=== PATIENT | male | born 1940 | race Caucasian/White ===

== ENCOUNTER → 2017-07-22 | Outpatient (CLI) | payer MEDICARE, OTHER ==
[~2017-07-22] MED LIST: ALLOPURINOL100 MG PO; ALPRAZOLAM1 MG PO; AMBIEN 10MG TAB10 MG PO; ASPIRIN 81MG TA81 MG PO; AZITHROMYCIN250 MG PO; CORGARD40 M1 PO; COZAAR50 MG OR; FUROSEMIDE40 MG PO; GLIMEPIRIDE 2MG2 MG PO; LIPITOR10 MG PO; NORVASC 10MG. T10 MG PO; ONE DAILY FOR1 EAC1 PO; PLAVIX 75MG TAB75 MG PO; POTASSIUM CHLO20 ME2 PO; TEKTURNA300 MG PO
[2017-07-22 15:47] LABS: HEMOGLOBIN 13.9 g/dL (14.1-18.0); LYMPH # 1.6 K/mm3 (0.7-4.5); LYMPH % 15.8 % (10-50)
[2017-07-22 19:16] LABS: BUN 36 mg/dL (7-18)
[2017-07-22 19:33] LABS: GFR (ESTIMATED) 26 ML/MIN (>60)
== END ==
LOC: LAB 15:22
PROVIDERS: Internal Medicine
DX: R60.9 Edema, unspecified (principal); I50.9 Heart failure, unspecified; I50.30 Unspecified diastolic (congestive) heart failure